=== PATIENT | male | born 1985 | race Caucasian/White ===

== ENCOUNTER 2017-08-08 10:33 | Inpatient (IN) | payer BC, OTHER, MEDICAID ==
[2017-08-08] VITALS (7 sets, daily range): BP systolic 130–187; BP diastolic 84–117
[~2017-08-08] VITALS: Ht 182.9 cm; Wt 86.7 kg
--- NOTE | ~2017-08-08 | PROC ---
[facility] [address] [place] [address] PROCEDURE REPORT Name: ELAINE EASTON Room: [address]#: [id number] Admission: 08/08/17 Attend Phys: Jolly Guallpa Discharge: 08/11/17 Date of : 89 Report #: [id number] THIS REPORT FOR: //name// For GI report, please see Provation report in Perceptive 7 content. By: 1429Medical Records Staff RULA /HODA
[2017-08-08 11:47] LABS: HEMATOCRIT 41.7 % (42.0-52.0); MCH 32.5 pg (26.0-34.0); MCHC 35.4 g/dL (28.0-37.0); MCV 91.8 fL (80.0-100.0); NUCLEATED RBCS 0 /100WBC; PLATELET COUNT* 257 thou/uL (150-400); RBC 4.54 mil/uL (4.50-6.00); RDW-CV 14.6 % (10.5-14.5); WBC 5.9 thou/uL (4.0-11.0)
[2017-08-08 11:50] LABS: URINE BLOOD NEGATIVE (Negative); URINE CLARITY CLEAR; URINE COLOR YELLOW; URINE GLUCOSE-RANDOM NEGATIVE (Negative); URINE KETONES NEGATIVE (Negative); URINE LEUKOCYTES-REFLEX NEGATIVE (Negative); URINE NITRITE-REFLEX NEGATIVE (Negative); URINE PROTEIN 1+ (Negative); URINE UROBILINOGEN 0.2 E.U./dl (0.2-1.0)
[2017-08-08 11:51] LABS: ICTOTEST (BILI CONFIRMATORY) Positive (Negative); URINE BILIRUBIN 1+ (Negative)
[2017-08-08 11:55] LABS: HEMOGLOBIN 14.8 gm/dL (14.0-18.0)
[2017-08-08 11:57] LABS: POTASSIUM 3.5 mmol/L (3.5-5.1)
[2017-08-08 11:58] LABS: CALCIUM 7.9 mg/dL (8.5-10.1); TOTAL BILIRUBIN 0.7 mg/dL (<0.1-1.0); TOTAL PROTEIN 6.2 g/dL (6.4-8.2)
[2017-08-08 12:01] LABS: AMP/METHAMP Negative (Negative); BARBITURATES Negative (Negative); BENZODIAZEPINES Negative (Negative); COCAINE Negative (Negative); METHADONE Negative (Negative); OPIATES Negative (Negative); PCP Negative (Negative); THC POSITIVE (Negative)
[2017-08-08 12:10] LABS: ABSOLUTE LYMPHOCYTES 1.4 thou/uL (0.8-5.3); ABSOLUTE MONOCYTES 0.3 thou/uL (0.0-1.2); ABSOLUTE NEUTROPHILS 4.2 thou/uL (1.6-8.1); PLATELET ESTIMATE ADEQUATE
[2017-08-08 15:06] LABS: PROTIME 13.2 Seconds (9.20-11.50)
[2017-08-08 20:38] LABS: ABSOLUTE BASOPHILS 0.1 thou/uL (0.0-0.2); ABSOLUTE LYMPHOCYTES 2.5 thou/uL (0.8-5.3); ABSOLUTE MONOCYTES 0.4 thou/uL (0.0-1.2); ABSOLUTE NEUTROPHILS 2.4 thou/uL (1.6-8.1); BASOPHILS 1.1 %; EOSINOPHILS 0.4 %; HEMATOCRIT 35.5 % (42.0-52.0); LYMPHOCYTES 46.8 %; MCH 32.6 pg (26.0-34.0); MCHC 35.4 g/dL (28.0-37.0); NUCLEATED RBCS 1 /100WBC; PLATELET COUNT* 201 thou/uL (150-400); POLYS 44.7 %; RBC 3.86 mil/uL (4.50-6.00); RDW-CV 14.7 % (10.5-14.5); WBC 5.3 thou/uL (4.0-11.0)
[2017-08-08 20:53] LABS: HEMOGLOBIN 12.6 gm/dL (14.0-18.0)
[2017-08-08 21:00] LABS: POTASSIUM 3.3 mmol/L (3.5-5.1)
[2017-08-08 21:03] LABS: BUN 15.6 mg/dL (7-18); CREATININE 1.1 mg/dL (0.6-1.3)
[2017-08-08 21:04] LABS: CALCIUM 6.6 mg/dL (8.5-10.1); GLUCOSE 148.8 mg/dL (70-99); MAGNESIUM 1.9 mg/dL (1.8-2.4); PHOSPHORUS* 4.6 mg/dL (2.5-4.9); SGOT 208.8 U/L (15-37); TOTAL BILIRUBIN 0.5 mg/dL (<0.1-1.0)
[2017-08-08 21:05] LABS: ALBUMIN 3.1 g/dL (3.4-5.0)
[2017-08-09] VITALS (8 sets, daily range): BP systolic 117–181; BP diastolic 71–112
[2017-08-09 02:01] LABS: INR 1.1; PROTIME 14.2 Seconds (9.20-11.50)
[2017-08-09 07:06] LABS: RBC 4.11 mil/uL (4.50-6.00); WBC 4.9 thou/uL (4.0-11.0)
[2017-08-09 07:07] LABS: HEMATOCRIT 32.4 % (42.0-52.0); HEMOGLOBIN 11.6 gm/dL (14.0-18.0); MCH 32.5 pg (26.0-34.0); MCV 88.5 fL (80.0-100.0); PLATELET COUNT* 233 thou/uL (150-400); RDW-CV 13.9 % (10.5-14.5)
[2017-08-09 07:12] LABS: ABSOLUTE EOSINOPHILS 0.1 thou/uL (0.0-0.7); ABSOLUTE LYMPHOCYTES 2.7 thou/uL (0.8-5.3); ABSOLUTE MONOCYTES 0.4 thou/uL (0.0-1.2); ABSOLUTE NEUTROPHILS 1.7 thou/uL (1.6-8.1); ATYPICAL MONONUCLEARS 1 %; HYPOCHROMASIA 1+; PLATELET ESTIMATE ADEQUATE
[2017-08-09 07:13] LABS: ANISOCYTOSIS 1+
[2017-08-09 07:16] LABS: ALBUMIN 3.6 g/dL (3.4-5.0); BUN 13.2 mg/dL (7-18); CALCIUM 7.7 mg/dL (8.5-10.1); CREATININE 1.2 mg/dL (0.6-1.3); TOTAL BILIRUBIN 0.7 mg/dL (<0.1-1.0); TOTAL PROTEIN 5.6 g/dL (6.4-8.2)
[2017-08-09 07:21] LABS: POTASSIUM 3.5 mmol/L (3.5-5.1)
--- NOTE | 2017-08-09 12:24 | EKG ---
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
[2017-08-10] VITALS: BP 154/99
[2017-08-10 04:00] VITALS: BP 143/91
[2017-08-10 06:52] LABS: HEMATOCRIT 37.9 % (42.0-52.0); HEMOGLOBIN 13.7 gm/dL (14.0-18.0); MCH 32.3 pg (26.0-34.0); MCHC 36.1 g/dL (28.0-37.0); MCV 89.5 fL (80.0-100.0); RBC 4.24 mil/uL (4.50-6.00); RDW-CV 14.4 % (10.5-14.5); WBC 3.5 thou/uL (4.0-11.0)
[2017-08-10 06:53] LABS: ABSOLUTE EOSINOPHILS 0.1 thou/uL (0.0-0.7); ABSOLUTE LYMPHOCYTES 1.8 thou/uL (0.8-5.3); ABSOLUTE MONOCYTES 0.4 thou/uL (0.0-1.2); ABSOLUTE NEUTROPHILS 1.2 thou/uL (1.6-8.1); HYPOCHROMASIA 2+; MPV 7.9 fl. (7.2-11.1); PLATELET COUNT* 210 thou/uL (150-400); PLATELET ESTIMATE ADEQUATE
[2017-08-10 07:00] LABS: ALBUMIN 3.3 g/dL (3.4-5.0); CALCIUM 7.4 mg/dL (8.5-10.1); PHOSPHORUS* 4.6 mg/dL (2.5-4.9); POTASSIUM 3.7 mmol/L (3.5-5.1); TOTAL BILIRUBIN 1.1 mg/dL (<0.1-1.0)
[2017-08-10 07:03] LABS: CREATININE 1.1 mg/dL (0.6-1.3)
[2017-08-10 07:04] LABS: TOTAL PROTEIN 6.2 g/dL (6.4-8.2)
[2017-08-10 07:21] LABS: CHOLESTEROL 560 mg/dL (<200); HDL CHOLESTEROL 54 mg/dL (>40); LDL CHOLESTEROL ND mg/dL (<100); SERUM ASSESSMENT Gross Lipemia; TC:HDL 10.4 Ratio (Not establshd); TRIGLYCERIDE 2454 mg/dL (<150); VLDL 491 mg/dL (<40)
[2017-08-10 08:35] VITALS: BP 154/115
[2017-08-10 12:38] VITALS: BP 153/101
[2017-08-10 16:40] VITALS: BP 184/109
[2017-08-10 20:02] VITALS: BP 150/91
[2017-08-11] VITALS (7 sets, daily range): BP systolic 104–157; BP diastolic 56–105
[2017-08-11] MEDS ORDERED: PROTONIX40 M1 PO (15:50)
[2017-08-11] MEDS ORDERED: PRENATAL MULTI1 EAC5 PO (16:24)
[2017-08-11] MEDS ORDERED: CARVEDILOL12.5 MG PO (16:30)
[2017-08-11] MEDS ORDERED: ATIVAN1 M1 PO (16:30)
[2017-08-11] MEDS ORDERED: LISINOPRIL5 MG PO (16:31)
[2017-08-11] MEDS ORDERED: CIPRO500 MG PO (16:31)
[2017-08-11] MEDS ORDERED: FLAGYL500 M1 PO (16:32)
[2017-08-11] MEDS ORDERED: PEPCID20 MG PO (16:36)
--- NOTE | 2017-08-12 15:00 | S ---
[address] [address] SURGICAL PATH RPT PROCEDURE Name: ELAINE MEHTA Ashlee Room: [address] IN M.R.#: [id number] Admission: 08/08/17 Date of : 89 Discharge: 08/11/17 Report #: [id number] Path Case #: [id number] PATHOLOGY REPORT COLLECTION DATE: 08/11/2017 RECEIVED DATE: 08/11/2017 SUBMITTING PHYS: Dr. Day Swift OTHER PHYS: Dr. Dickson Mandujano SPECIMEN(S) RECEIVED: A.Duodenal biopsy B.Esophageal biopsy, rule out Dodson's C.Random biopsies of colon D.Descending colon polyp * * * * * * * * * * * * FINAL DIAGNOSIS: A. Duodenal biopsies: - Normal duodenal/small intestinal mucosa. B. Esophageal biopsy: - Scant benign esophageal mucosa and predominantly benign gastric/columnar type mucosa with mild chronic inflammation compatible with reflux, negative for goblet cells/diagnostic Dodson's metaplasia and dysplasia. C. Random biopsies of colon: - Hyperplastic lymphoid follicle (Peyer's patch) and focal fresh hemorrhage in otherwise normal colonic mucosa. D. Descending colon polyp: - Tubular adenoma, negative for high-grade dysplasia. (GÉNESIS:; 08/12/2017) PATHOLOGIST: Slade Heredia M.D. REPORT ELECTRONICALLY SIGNED BY: Slade Heredia M.D. DATE/TIME: 08/12/2017 14:59 * * * * * * * * * * * * GROSS PATHOLOGY: A. Received in formalin labeled "Elaine Mehta, duodenal biopsies," are 3 segments of moeller soft tissue measuring 0.7 x 0.5 x 0.2 cm in aggregate dimensions and ranging from 0.2 to 0.5 cm in maximum dimension. The specimen is submitted entirely in cassette A1. B. Received in formalin labeled "Elaine Mehta, esophageal biopsy, rule out Dodson's," are 2 segments of moeller soft tissue measuring 0.5 x 0.4 x 0.2 cm in aggregate dimensions and ranging from 0.1 to 0.4 cm in maximum dimension. The specimen is submitted entirely in cassette B1. C. Received in formalin labeled "Elaine Zelayad, [place] [address] SURGICAL PATH RPT PROCEDURE Name: ELAINE MEHTA Room: [address] IN .R.#: [id number] Admission: 08/08/17 Date of : 89 Discharge: 08/11/17 Report #: [id number] Path Case #: [id number] colon," are 6 segments of moeller soft tissue measuring 2.0 x 0.9 x 0.2 cm in aggregate dimensions and ranging from 0.2 to 0.5 cm in maximum dimension. The specimen is submitted entirely in cassette C1. D. Received in formalin labeled "Elaine Mehta, descending colon polyp," is a segment of moeller soft tissue measuring 0.4 cm in maximum dimension. The specimen is submitted entirely in cassette D1. (TSD; 08/11/2017) CLINICAL HISTORY: None provided INITIAL CPT CODE(S): A; 66531 B; 12976 C; 03452 D; 44005 Professional services performed by [employer] at [facility] [address], [place] [address]. Technical services performed by [employer] at [address] [place] [address], [address], [place] [address]. [facility] [address] [place] [address] PHONE: [phone] DIRECTOR: Eddie Mensah M.D. * * * END OF REPORT * * *
--- NOTE | 2017-08-25 15:01 | CON ---
[address] [address] CONSULTATION Name: ELAINE EASTON Ashlee Room: [address] IN .R.#: [id number] Admission: 08/08/17 Attend Phys: Jolly Guallpa Discharge: 08/11/17 Date of : 89 Report #: [id number] THIS REPORT FOR: //name// CC: LOY physician/PCP Dickson Mandujano DO DATE OF SERVICE: 08/09/2017 REQUESTING PHYSICIAN: Dickson Mandujano DO REASON FOR CONSULT: Abnormal CT and hematochezia and hematemesis. HISTORY OF PRESENT ILLNESS: This is a 32-year-old male with history of alcoholism who presents to the hospital not feeling well. The patient reports that he has been intermittently having nausea, vomiting, hematemesis and occasionally hematochezia. Since hospitalization, the patient had blood work, which showed severe hyponatremia. His other electrolytes such as potassium and chloride were low as well. He had transaminitis with AST to ALT ratio of . His alk phos and bilirubin are normal. The patient admits to drinking excessively and reports that at least drinks 3 pints of vodka per day. The patient also admits to drinking excessive fluids to keep himself hydrated. The patient denies taking any medications at home. PAST MEDICAL HISTORY: Essentially unremarkable. ALLERGIES: Significant to ERYTHROMYCIN. MEDICATIONS: Please refer to hospital MAR. Note that the patient does not take any meds at home. 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 He reports that he is anxious and is under a lot of stress. This prompts him to drink alcohol. FAMILY HISTORY: Father has at age of 57 due to aortic abdominal aneurysm rupture. He denies any malignancy in the family. PHYSICAL EXAMINATION: VITAL SIGNS: Reveals blood pressure of 168/108, respirations 15, pulse 75, temperature 98.1. LUNGS: Clear. CARDIOVASCULAR: [place] [address] CONSULTATION Name: ELAINE EASTON Ashlee Room: [address]#: [id number] Admission: 08/08/17 Attend Phys: Jolly Guallpa Discharge: 08/11/17 Date of : 89 Report #: [id number] ABDOMEN: Soft, tender to palpation in all 4 quadrants. Bowel sounds are positive. NEUROLOGIC: The patient is alert, oriented x3. There is no focal neurologic deficit. LABS: Reveal sodium of 121, potassium 3.5, chloride is 87, CO2 of 24, anion gap is 10, BUN is 13.2, creatinine 1.2 with AST of 272 and ALT of 140. Alk phos is 86, albumin 3.6. Ammonia is 23. TSH is 3.9. INR is 1.1. WBC is 4.9 with hemoglobin of 11.6 and platelets of 233. IMAGING: CT of abdomen and pelvis was obtained, which revealed generalized small and large bowel wall thickening suggestive of unspecified enteritis and colitis. No evidence of bowel obstruction noted. ASSESSMENT AND PLAN: The patient with history of alcoholism and excessive fluid intake who presents with electrolyte derangement and severe hyponatremia. He is currently on free water restriction and his sodium is being replaced. In reference to his GI bleeding, he reports that this has been a long problem and has been intermittent. The CT suggestive of enteritis and colitis, which may be infectious. We will continue IV antibiotics and also continue monitoring hemoglobin. Once his sodium is above 135, we will consider prepping him for EGD and colonoscopy. The patient is agreeable with plan. <ELECTRONICALLY SIGNED> By: Day Swift MD 08/25/17 1501 0844 1137Day Swift MD /nt
== END 2017-08-11 17:45 | disposition home or self-care (01) | DRG 378 ==
LOC: M.ERS 10:33 → M.TBA-ER 12:33 → M.ICU 18:22 → M.2W 08-09 15:38
PROVIDERS: Family Medicine; Physician Assistant; ADMIT Internal Medicine
PROC: 0DB58ZX Excision of Esophagus, Via Natural or Artificial Opening Endoscopic, Diagnostic (ICD-10-PCS; principal; 2017-08-11)
PROC: 0DBE8ZX Excision of Large Intestine, Via Natural or Artificial Opening Endoscopic, Diagnostic (ICD-10-PCS; principal; 2017-08-11)
PROC: 0DB98ZX Excision of Duodenum, Via Natural or Artificial Opening Endoscopic, Diagnostic (ICD-10-PCS; principal; 2017-08-11)
PROC: 0DBM8ZX Excision of Descending Colon, Via Natural or Artificial Opening Endoscopic, Diagnostic (ICD-10-PCS; principal; 2017-08-11)
DX: K92.2 Gastrointestinal hemorrhage, unspecified (principal); E87.1 Hypo-osmolality and hyponatremia; A09 Infectious gastroenteritis and colitis, unspecified; I10 Essential (primary) hypertension; F10.20 Alcohol dependence, uncomplicated; F17.210 Nicotine dependence, cigarettes, uncomplicated; E87.8 Other disorders of electrolyte and fluid balance, not elsewhere classified; K44.9 Diaphragmatic hernia without obstruction or gangrene; K21.0 Gastro-esophageal reflux disease with esophagitis; Z88.1 Allergy status to other antibiotic agents; Z82.49 Family history of ischemic heart disease and other diseases of the circulatory system; Z79.899 Other long term (current) drug therapy; Z90.49 Acquired absence of other specified parts of digestive tract

== ENCOUNTER 2018-01-29 11:48 | Emergency (ER) | payer BC, OTHER, MEDICAID ==
[~2018-01-29] VITALS: Ht 185.4 cm; Wt 86.2 kg
[~2018-01-29 11:48] MED LIST: ATIVAN1 M1 PO; CARVEDILOL12.5 MG PO; CIPRO500 MG PO; FLAGYL500 M1 PO; LISINOPRIL5 MG PO; PEPCID20 MG PO; PRENATAL MULTI1 EAC5 PO; PROTONIX40 M1 PO
[2018-01-29] MEDS ORDERED: PENICILLIN VK500 MG PO (12:20)
[2018-01-29] MEDS ORDERED: NORCO 5-325 TA1 EACH PO (12:20)
[2018-01-29 12:52] VITALS: BP 183/125
== END 2018-01-29 12:53 | disposition home or self-care (01) ==
LOC: M.ERS 11:48
DX: K04.7 Periapical abscess without sinus (principal); I10 Essential (primary) hypertension; Z88.1 Allergy status to other antibiotic agents; Z90.49 Acquired absence of other specified parts of digestive tract

== ENCOUNTER 2018-12-09 11:56 | Emergency (ER) | payer BC, OTHER, MEDICAID ==
[~2018-12-09] VITALS: Ht 182.9 cm; Wt 83.9 kg
[~2018-12-09 11:56] MED LIST changes: +MAGOX 400400 MG PO; +NEURONTIN 400400 M1 PO; +NORCO 5-325 TA1 EACH PO; +PENICILLIN VK500 MG PO; +POTASSIUM20 PO
[2018-12-09 12:21] LABS: ABSOLUTE BASOPHILS 0.1 thou/uL (0.0-0.2); ABSOLUTE LYMPHOCYTES 2.2 thou/uL (0.8-5.3); ABSOLUTE MONOCYTES 0.5 thou/uL (0.0-1.2); ABSOLUTE NEUTROPHILS 2.4 thou/uL (1.6-8.1); BASOPHILS 1.2 %; HEMATOCRIT 43.1 % (42.0-52.0); HEMOGLOBIN 15.2 gm/dL (14.0-18.0); MCH 32.8 pg (26.0-34.0); MCHC 35.2 g/dL (28.0-37.0); MCV 93.3 fL (80.0-100.0); MONOCYTES 9.3 %; MPV 8.2 fl. (7.2-11.1); NUCLEATED RBCS 0 /100WBC; PLATELET COUNT* 253 thou/uL (150-400); POLYS 46.5 %; RBC 4.62 mil/uL (4.50-6.00); RDW-CV 13.5 % (10.5-14.5); WBC 5.1 thou/uL (4.0-11.0)
[2018-12-09 12:56] LABS: ALBUMIN 4.1 g/dL (3.4-5.0); ALKALINE PHOSPHATASE 128 U/L (46-116); ANION GAP 13 mmol/L (7-16); BUN 20 mg/dL (7-18); CALCIUM 7.6 mg/dL (8.5-10.1); CHLORIDE 96 mmol/L (98-107); CK-MB MASS 1.1 ng/mL (<0.5-3.6); CO2 25 mmol/L (21-32); CREATININE 1.2 mg/dL (0.6-1.3); GLUCOSE 197 mg/dL (70-99); LIPASE 347 U/L (73-393); MAGNESIUM 2.2 mg/dL (1.8-2.4); NT-PRO BRAIN NAT PEPTIDE 10 pg/mL (<300); POTASSIUM 3.6 mmol/L (3.5-5.1); SODIUM 134 mmol/L (136-145); TOTAL BILIRUBIN 1.1 mg/dL (<0.1-1.0); TOTAL PROTEIN 7.8 g/dL (6.4-8.2); TROPONIN-I LEVEL <0.06 ng/mL (<0.06)
[2018-12-09 13:14] VITALS: BP 150/100
[2018-12-09 13:22] LABS: APTT 24.6 Seconds (25.0-31.3)
[2018-12-09 13:33] LABS: INR 1.3; PROTIME 12.1 Seconds (9.20-11.50)
[2018-12-09 13:53] LABS: SGOT 240.8 U/L (15-37); SGPT 96.6 U/L (30-65)
--- NOTE | 2018-12-09 15:22 | EKG ---
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 : 1985 Requested By: Jian Darling Order Number: [id number] MD: Gautam Vidales Measurements Intervals [place] Rate: 126 P: 26 CT: 139 QRS: 43 QRSD: 90 T: -2 QT: 319 QTc: 462 Interpretive Statements Sinus tachycardia Minimal ST depression, lateral leads Baseline wander in lead(s) II,III,aVF,V5 Compared to ECG 11/06/2018 15:44:01 ST (T wave) deviation now present Sinus rhythm no longer present Prolonged QT interval no longer present Electronically Signed On 12-09-2018 15:22:23 CDT by Gautam Vidales [email or web address] <ELECTRONICALLY SIGNED> By: Gautam Vidales MD, [facility] 12/09/18 1522 1205 1205 Gautam Vidales MD, [facility] /EPI
== END 2018-12-09 13:20 | disposition left against medical advice (07) ==
LOC: M.ERS 11:56
PROVIDERS: Family Medicine
DX: F10.129 Alcohol abuse with intoxication, unspecified (principal); R06.00 Dyspnea, unspecified; F17.210 Nicotine dependence, cigarettes, uncomplicated; I10 Essential (primary) hypertension; Z90.49 Acquired absence of other specified parts of digestive tract; Z88.1 Allergy status to other antibiotic agents; Y90.0 Blood alcohol level of less than 20 mg/100 ml